=== PATIENT | male | born 1965 | race Caucasian/White ===

== ENCOUNTER 2017-03-18 22:25 | Emergency (ER) | payer MEDICARE, MEDICAID ==
[2017-03-18] MEDS ORDERED: Morphine 2 MG/ML Syringe IVPUSH ONE (22:31)
[2017-03-18 22:33] VITALS: BP 155/79
--- NOTE | 2017-03-18 22:41 | EDM.PDOC ---
ED HPI GENERAL MEDICAL PROBLEM - General Chief Complaint: Chest Pain Stated Complaint: CHEST PAIN Time Seen by Provider: 03/18/17 22:25 Source of Information: Reports: Patient History Limitations: Reports: No Limitations - History of Present Illness INITIAL COMMENTS - FREE TEXT/NARRATIVE: According to patient he was making supper at 6 pm today and started to have chest pain with radiation to left arm. Pt claims that he took one nitro and pain improved and soon it came back in few minutes he took the second one and pain did not improve much. So he ate his supper and went to rest and the chest pain reoccurred and he took his third nitro 0.4mg and pain persisted and hence came into ER. No nausea or vomiting. No incontinence of urine or stool. No wheezing, shortness of breath. no sweating. No cough. No belching burping or abdominal pain.Pain does not get worse with deep breathing Pt rates pain at 5/10 now. Pt claims he had chest pain in September of 2015 , had Stress test, but he has no followup with [facility]. the only medication her takes for heart disease is S/l Nitro. Onset: Today Onset Date: 03/18/17 Onset Time: 18:00 Duration: Intermittent Location: Reports: Chest Quality: Reports: Ache Severity: Moderate Improves with: Reports: None Worsens with: Reports: None Associated Symptoms: Reports: Chest Pain. Denies: Confusion, Cough, Diaphoresis , Fever/Chills, Loss of Appetite, Nausea/Vomiting, Shortness of Breath, Syncope , Weakness Treatments PACKAGER: Reports: Nitroglycerin Chest Pain Score (Numeric/FACES): 8 - Related Data Allergies Allergy/AdvReac Type Severity Reaction Status Date / Time aspirin Allergy Bleeding Verified 03/18/17 22:44 Home Meds: Home Meds Omeprazole [Omeprazole] 40 mg PO ACBREAKFAST 09/26/15 [History] metFORMIN [Glucophage] 500 mg PO BID 09/26/15 [History] FLUoxetine [PROzac] 20 mg PO DAILY 07/31/16 [History] Ibuprofen 600 mg PO TID PRN 12/08/16 [History] Nitroglycerin [Nitrostat] 0.4 mg SL ASDIRECTED 03/18/17 [History] Past Medical History HEENT History: Reports: Impaired Vision Cardiovascular History: Reports: [place] Respiratory History: Reports: None Gastrointestinal History: Reports: GERD Musculoskeletal History: Reports: Arthritis Psychiatric History: Reports: Depression Endocrine/Metabolic History: Reports: Diabetes, Type II Oncologic (Cancer) History: Reports: None - Infectious Disease History Infectious Disease History: Reports: Chicken Pox - Past Surgical History Head Surgeries/Procedures: Reports: None Cardiovascular Surgical History: Reports: None Other Respiratory Surgeries/Procedures: lying in supine: difficulty breathing GI Surgical History: Reports: Colonoscopy Social & Family History - Family History Family Medical History: Noncontributory - Tobacco Use Smoking Status *Q: Former Smoker Years of Tobacco use: 20 Packs/Tins Daily: 0 Used Tobacco, but Quit: Yes Month Tobacco Last Used: 4 years ago Second Hand Smoke Exposure: Yes - Caffeine Use Caffeine Use: Reports: Soda - Alcohol Use Days Per Week of Alcohol Use: 0 - Recreational Drug Use Recreational Drug Use: No ED ROS GENERAL - Review of Systems Review Of Systems: See Below Constitutional: Denies: Fever, Chills HEENT: Denies: Throat Pain, Throat Swelling Respiratory: Denies: Cough, Sputum Cardiovascular: Reports: Chest Pain. Denies: Lightheadedness GI/Abdominal: Denies: Abdominal Pain, Nausea, Vomiting : Denies: Dysuria, Flank Pain Musculoskeletal: Denies: Neck Pain, Shoulder Pain, Joint Pain, Joint Swelling Skin: Denies: Pruritis, Rash Neurological: Denies: Confusion, Dizziness, Weakness Psychiatric: Reports: Anxiety. Denies: Agitation ED EXAM, GENERAL - Physical Exam Exam: See Below Exam Limited By: No Limitations General Appearance: Alert, WD/WN, No Apparent Distress Eye Exam: Bilateral Eye: EOMI, PERRL Ears: Normal External Exam, Normal Canal, Hearing Grossly Normal, Normal TMs Ear Exam: Bilateral Ear: Auricle Normal, Canal Normal, TM normal Nose: Normal Inspection, Normal Mucosa, No Blood Throat/Mouth: Normal Inspection, Normal Lips, Normal Teeth, Normal Gums, Normal Oropharynx, Normal Voice, No Airway Compromise Head: Atraumatic, Normocephalic Neck: Normal Inspection, Supple, Non-Tender, Full Range of Motion Respiratory/Chest: No Respiratory Distress, Lungs Clear, Normal Breath Sounds, No Accessory Muscle Use, Chest Non-Tender Cardiovascular: Normal Peripheral Pulses, Regular Rate, Rhythm, No Edema, No Gallop, No JVD, No Murmur, No Rub Peripheral Pulses: 2+: Radial (L), Radial (R) GI/Abdominal: Normal Bowel Sounds, Soft, Non-Tender, No Organomegaly, No Distention, No Abnormal Bruit, No Mass Back Exam: Normal Inspection, Full Range of Motion, NT Extremities: Normal Inspection, Normal Range of Motion, Non-Tender, Normal Capillary Refill, No Pedal Edema Neurological: Alert, Oriented, CN II-XII Intact, Normal Cognition, Normal Gait, Normal Reflexes, No Motor/Sensory Deficits EKG INTERPRETATION EKG Date: 03/18/17 Rhythm: NSR Rate (beats/min): 78 P-wave: present QRS: normal ST-T: normal QT: normal EKG Interpretation Comments: NSR with LVH Course - Vital Signs Text/Narrative:: Pt has had chest pain since 6 Pm today. His EKG is in normal sinus rhythm, also his chest xray is normal. His CBC and CMP appear normal. Troponin is negative after 5 hrs of chest pain. Pt did receive 4 mg of morphine IV and he still rates his pain at 4/10 and in his chest. He has no other asso symptoms. At this point , I did re evaluate patient. I did apply pressure of his costochondral joints and patient claims it hurts and that is where the pain is. Pt also claims that he fell 1 wk ago and since then his chest has been hurting. Apparently patient has developed costochondritis from fall. Advised intermittent heat to the chest wall and alternate tylenol with motrin for pain.Also he claims his anxiety has got worse since he has not been taking his fluoxitine for past 1 wk, and hence he panicked with his chest hurting. his fluoxitine has been refilled at [facility]. I have advised patient to pick it up tomorrow. Also advised to followup in [facility] next week for recheck. Last Recorded V/S: Last Vital Signs Temp 97.6 F 03/18/17 22:30 Pulse 86 03/18/17 22:30 Resp 20 03/18/17 22:30 BP 155/79 H 03/18/17 22:30 Pulse Ox 100 03/18/17 23:05 - Orders/Labs/Meds Orders: Active Orders 24 hr Category Date Time Status Cardiac Monitoring [RC] .As Directed Care 03/18/17 22:32 Active EKG Documentation Completion [RC] ASDIRECTED Care 03/18/17 22:31 Active Chest 1V Frontal [CR] Stat Exams 03/18/17 22:34 Taken GLYCOSYLATED HEMOGLOBIN,HGBA1C [CHEM] Stat Lab 03/18/17 23:07 Ordered EKG 12 Lead [EK] Routine Ther 03/18/17 22:30 Ordered Labs: Laboratory Tests 03/18/17 03/18/17 03/18/17 Range/Units 22:40 22:40 22:40 WBC 10.8 D (4.0-11.0) K/uL RBC 4.62 (4.50-6.50) M/uL Hgb 13.5 (13.0-18.0) g/dL Hct 38.5 L (40.0-54.0) % MCV 83 (76-96) fL MCH 29.2 (27.0-32.0) pg MCHC 35.1 H (31.0-35.0) g/dL RDW 13.1 (11.0-16.0) % Plt Count 176 (150-400) K/uL MPV 11.1 H (6.0-10.0) fL Neut % (Auto) 55.6 (45.0-70.0) % Lymph % (Auto) 34.1 (20.0-40.0) % [place] % (Auto) 5.8 (3.0-10.0) % Eos % (Auto) 3.9 (1.0-5.0) % Baso % (Auto) 0.6 H (0.0-0.5) % Neut # (Auto) 6.02 (2.00-7.50) K/uL Lymph # (Auto) 3.69 (1.50-4.00) K/uL [place] # (Auto) 0.63 (0.20-0.80) K/uL Eos # (Auto) 0.42 H (0.04-0.40) K/uL Baso # (Auto) 0.06 (0.02-0.10) K/uL PT 9.4 (9.0-11.5) sec INR 0.9 L (1.0-3.5) APTT 23.0 L (27.0-35.0) SECONDS Sodium 138 (136-145) mmol/L Potassium 4.0 (3.5-5.1) mmol/L Chloride 101 (98-107) mmol/L Carbon Dioxide 24.5 (21.0-32.0) mmol/L Anion Gap 16.5 H (5.0-15.0) mmol/L BUN 21 (8-26) mg/dL Creatinine 1.32 H (0.70-1.30) mg/dL Est Cr Clr Drug Dosing TNP Estimated GFR (MDRD) 57 L (>60) MLS/MIN BUN/Creatinine Ratio 15.9 (6-25) Glucose 226 H (74-100) mg/dL Calcium 9.2 (8.5-10.1) mg/dL Total Bilirubin 0.4 (0.0-1.0) mg/dL AST 19 (15-37) U/L ALT 38 (12-78) U/L Alkaline Phosphatase 53 (46-116) U/L Troponin I < 0.015 (0.000-0.060) ng/mL Total Protein 7.2 (6.4-8.2) g/dL Albumin 3.6 (3.4-5.0) g/dL Globulin 3.6 (2.2-4.2) g/dL Albumin/Globulin Ratio 1.0 (0.8-2.0) Meds: Medications Discontinued Medications Generic Name Dose Route Start Last Admin Trade Name Shawnq PRN Reason Stop Dose Admin Morphine Sulfate 4 mg 03/18/17 22:31 03/18/17 22:37 Morphine IVPUSH 03/18/17 22:32 4 mg ONETIME ONE Administration Departure - Departure Time of Disposition: 11:30 Disposition: Home, Self-Care 01 Condition: good Clinical Impression: Costochondritis - Discharge Information Instructions: Chest Wall Pain, [id number] Referrals: PCP,None [Primary Care Provider] - Forms: ED Department Discharge - Problem List & Annotations (1) Costochondritis SNOMED Code(s): 12903876 Code(s): M94.0 - CHONDROCOSTAL JUNCTION SYNDROME [TIETZE] Status: Acute Current Visit: Yes - Problem List Review Problem List Initiated/Reviewed/Updated: Yes - My Orders Last 24 Hours: My Active Orders 03/18/17 22:30 EKG 12 Lead [EK] Routine 03/18/17 22:31 EKG Documentation Completion [RC] ASDIRECTED 03/18/17 22:32 Cardiac Monitoring [RC] .As Directed 03/18/17 22:34 Chest 1V Frontal [CR] Stat 03/18/17 23:07 GLYCOSYLATED HEMOGLOBIN,HGBA1C [CHEM] Stat - Assessment/Plan Last 24 Hours: My Active Orders 03/18/17 22:30 EKG 12 Lead [EK] Routine 03/18/17 22:31 EKG Documentation Completion [RC] ASDIRECTED 03/18/17 22:32 Cardiac Monitoring [RC] .As Directed 03/18/17 22:34 Chest 1V Frontal [CR] Stat 03/18/17 23:07 GLYCOSYLATED HEMOGLOBIN,HGBA1C [CHEM] Stat Assessment:: Chest wall pain Plan: Pt has had chest pain since 6 Pm today. His EKG is in normal sinus rhythm, also his chest xray is normal. His CBC and CMP appear normal. Troponin is negative after 5 hrs of chest pain. Pt did receive 4 mg of morphine IV and he still rates his pain at 4/10 and in his chest. He has no other asso symptoms. At this point , I did re evaluate patient. I did apply pressure of his costochondral joints and patient claims it hurts and that is where the pain is. Pt also claims that he fell 1 wk ago and since then his chest has been hurting. Apparently patient has developed costochondritis from fall. Advised intermittent heat to the chest wall and alternate tylenol with motrin for pain.Also he claims his anxiety has got worse since he has not been taking his fluoxitine for past 1 wk, and hence he panicked with his chest hurting. his fluoxitine has been refilled at [facility]. I have advised patient to pick it up tomorrow. Also advised to followup in clinic next week for recheck.Return if symptoms worsen to emergency room.
--- NOTE | 2017-03-19 08:44 | CR ---
DATE OF SERVICE: 03/18/17 CLINICAL DATA: chest pain AP CHEST: Comparison is made to a prior exam dated 07/23/15. The patient has taken a poor inspiration and is in an apical lordotic position. The heart size is normal. The lungs are clear. The exam is otherwise negative. IMPRESSION: No evidence of acute intrathoracic disease. [id number] [facility]
== END 2017-03-18 23:30 | disposition home or self-care (01) ==
LOC: LB.ED 22:25
DX: M94.0 Chondrocostal junction syndrome [Tietze] (principal); I25.2 Old myocardial infarction; K21.9 Gastro-esophageal reflux disease without esophagitis; M19.90 Unspecified osteoarthritis, unspecified site; F32.9 Major depressive disorder, single episode, unspecified; E11.9 Type 2 diabetes mellitus without complications; Z88.8 Allergy status to other drugs, medicaments and biological substances; Z79.84 Long term (current) use of oral hypoglycemic drugs; Z79.899 Other long term (current) drug therapy; Z87.891 Personal history of nicotine dependence
CPT/HCPCS: 36415; 71010; 80053; 83036; 84484; 85025; 85610; 85730; 93005; 96374; 99285; J2270; 99284

== ENCOUNTER 2018-12-13 08:58 | Emergency (ER) | payer MEDICARE, MEDICAID ==
--- NOTE | 2018-12-13 12:05 | EDM.PDOC ---
ED HPI GENERAL MEDICAL PROBLEM - General Stated Complaint: SYNCOPE EPISODES Time Seen by Provider: 12/13/18 11:40 Source of Information: Reports: Patient History Limitations: Reports: No Limitations - History of Present Illness INITIAL COMMENTS - FREE TEXT/NARRATIVE: Pt presented to emergency room by private vehicle. According to patient, he claims that he got up in the morning and had his breakfast and was taking his medication. He had all the medication in his left hand. After that he does not remember anything, then his brother came and woke him up and told him he was passed out. When he was woken up, he was still sitting in the chair. Does not know how long he had passed out. No weakness in the extremities. No tingling or numbness in the extremities. able to walk with out any discomfort.No chest pain, no palpitations. No lightheaded feeling now. Since he heard that he had passed out he has been feeling very anxious. Also c/ o burning feeling in his lungs. His SPO2 is 100% on room air. Has no cough, shortness of breath or wheezing. Patient's blood sugar is 321 mg in the emergency room. Onset: Today Onset Date: 12/13/18 Onset Time: 08:00 Duration: Improving Severity: Mild Improves with: Reports: None Worsens with: Reports: None Associated Symptoms: Denies: Confusion, Chest Pain, Cough, Diaphoresis, Fever/ Chills, Nausea/Vomiting, Rash, Seizure, Shortness of Breath, Syncope, Weakness - Related Data Allergies Allergy/AdvReac Type Severity Reaction Status Date / Time aspirin Allergy Bleeding Verified 03/18/17 22:44 Home Meds: Home Meds Omeprazole 40 mg PO ACBREAKFAST 09/26/15 [History] metFORMIN [Glucophage] 500 mg PO BID 09/26/15 [History] FLUoxetine [PROzac] 20 mg PO DAILY 07/31/16 [History] Ibuprofen 600 mg PO TID PRN 12/08/16 [History] Nitroglycerin [Nitrostat] 0.4 mg SL ASDIRECTED 03/18/17 [History] Past Medical History HEENT History: Reports: Impaired Vision Cardiovascular History: Reports: [place] Respiratory History: Reports: None Gastrointestinal History: Reports: GERD Musculoskeletal History: Reports: Arthritis Psychiatric History: Reports: Depression Endocrine/Metabolic History: Reports: Diabetes, Type II Oncologic (Cancer) History: Reports: None - Infectious Disease History Infectious Disease History: Reports: Chicken Pox - Past Surgical History Head Surgeries/Procedures: Reports: None Cardiovascular Surgical History: Reports: None Other Respiratory Surgeries/Procedures: lying in supine: difficulty breathing GI Surgical History: Reports: Colonoscopy Social & Family History - Family History Family Medical History: Noncontributory - Caffeine Use Caffeine Use: Reports: Soda ED ROS GENERAL - Review of Systems Review Of Systems: See Below Constitutional: Denies: Fever, Chills, Night Sweats, Diaphoresis HEENT: Denies: Rhinitis, Throat Pain, Throat Swelling Respiratory: Denies: Shortness of Breath, Wheezing, Cough, Sputum Cardiovascular: Reports: Syncope. Denies: Chest Pain, Claudication, Edema, Lightheadedness, Palpitations GI/Abdominal: Denies: Abdominal Pain, Nausea, Vomiting : Denies: Dysuria, Flank Pain Musculoskeletal: Denies: Joint Pain, Joint Swelling Skin: Denies: Pruritis, Rash, Erythema Neurological: Reports: Syncope. Denies: Confusion, Dizziness, Headache, Numbness, Paresthesia, Tingling, Tremors, Trouble Speaking, Difficulty Walking, Weakness, Change in Speech, Gait Disturbance ED EXAM, GENERAL - Physical Exam Exam: See Below Exam Limited By: No Limitations General Appearance: Alert, WD/WN, No Apparent Distress Eye Exam: Bilateral Eye: EOMI, PERRL Ears: Normal External Exam, Normal Canal, Hearing Grossly Normal, Normal TMs Ear Exam: Bilateral Ear: Auricle Normal, Canal Normal, TM normal Nose: Normal Inspection, Normal Mucosa, No Blood Throat/Mouth: Normal Inspection, Normal Lips, Normal Teeth, Normal Gums, Normal Oropharynx, Normal Voice, No Airway Compromise Head: Atraumatic, Normocephalic Neck: Normal Inspection, Supple, Non-Tender, Full Range of Motion Respiratory/Chest: No Respiratory Distress, Lungs Clear, Normal Breath Sounds, No Accessory Muscle Use, Chest Non-Tender Cardiovascular: Normal Peripheral Pulses, Regular Rate, Rhythm, No Edema, No Gallop, No JVD, No Murmur, No Rub Peripheral Pulses: 2+: Carotid (L), Carotid (R), Radial (L), Radial (R), Dorsalis Pedis (L), Dorsalis Pedis (R) GI/Abdominal: Normal Bowel Sounds, Soft, Non-Tender, No Organomegaly, No Distention, No Abnormal Bruit, No Mass Extremities: Normal Inspection, Normal Range of Motion, Non-Tender, Normal Capillary Refill, No Pedal Edema Neurological: Alert, Oriented, CN II-XII Intact, Normal Cognition, Normal Gait, Normal Reflexes, No Motor/Sensory Deficits Skin Exam: Warm, Intact EKG INTERPRETATION Rhythm: NSR [place]: Normal P-Wave: Present QRS: Normal ST-T: Normal QT: Normal Course - Vital Signs Text/Narrative:: Basically pt's description is , he was having his medication in left hand, and had passed out on his chair, this was told to him by his brother. Patient felt anxious and came to emergency room. Patient has decreased mental function. There are no neurological deficits noted. Does not appear like seizures or stroke. He is anxious at this point. Vitals have been stable. Will work him up for cardiac injury and presyncope considering his diabetes. Also his diabetes is not well controlled , his random blood sugar is 321 and he only take metformin 500mg twice daily, this could be hyperglycemic episode too. Pt's EKG is in Sinus rhythm. CBC is normal. CMP is stable. His troponin is negative. Pt has been feeling fine. Only abnormal finding is that he has, elevated blood sugar of 321. I have increased his metformin to 1000mg twice daily. Continue to monitor blood sugars. followup with primary care provider in 7-10 days. Return to emergency room if syncopal episodes reoccur. - Orders/Labs/Meds Orders: Active Orders 24 hr Category Date Time Status EKG Documentation Completion [RC] ASDIRECTED Care 12/13/18 11:58 Active Chest 1V Frontal [CR] Stat Exams 12/13/18 11:59 Taken Labs: Laboratory Tests 12/13/18 12/13/18 12/13/18 Range/Units 10:53 12:15 12:15 WBC 8.9 (4.0-11.0) K/uL RBC 4.94 (4.50-6.50) M/uL Hgb 14.2 (13.0-18.0) g/dL Hct 41.3 (40.0-54.0) % MCV 84 (76-96) fL MCH 28.7 (27.0-32.0) pg MCHC 34.4 (31.0-35.0) g/dL RDW 12.6 (11.0-16.0) % Plt Count 181 (150-400) K/uL MPV 10.9 H (6.0-10.0) fL Neut % (Auto) 67.3 (45.0-70.0) % Lymph % (Auto) 23.0 (20.0-40.0) % [place] % (Auto) 5.2 (3.0-10.0) % Eos % (Auto) 3.9 (1.0-5.0) % Baso % (Auto) 0.6 H (0.0-0.5) % Neut # (Auto) 5.98 (2.00-7.50) K/uL Lymph # (Auto) 2.04 (1.50-4.00) K/uL [place] # (Auto) 0.46 (0.20-0.80) K/uL Eos # (Auto) 0.35 (0.04-0.40) K/uL Baso # (Auto) 0.05 (0.02-0.10) K/uL Sodium 137 (136-145) mmol/L Potassium 4.6 (3.5-5.1) mmol/L Chloride 99 (98-107) mmol/L Carbon Dioxide 27.2 (21.0-32.0) mmol/L Anion Gap 15.4 H (5.0-15.0) mmol/L BUN 17 (8-26) mg/dL Creatinine 1.23 (0.70-1.30) mg/dL Est Cr Clr Drug Dosing TNP Estimated GFR (MDRD) > 60 (>60) MLS/MIN BUN/Creatinine Ratio 13.8 (6-25) Glucose 304 H (74-100) mg/dL POC Glucose 321 H (74-110) mg/dL Calcium 9.1 (8.5-10.1) mg/dL Total Bilirubin 0.4 (0.0-1.0) mg/dL AST 17 (15-37) U/L ALT 35 (12-78) U/L Alkaline Phosphatase 64 (46-116) U/L Troponin I < 0.017 (0.000-0.060) ng/mL Total Protein 8.2 (6.4-8.2) g/dL Albumin 3.9 (3.4-5.0) g/dL Globulin 4.3 H (2.2-4.2) g/dL Albumin/Globulin Ratio 0.9 (0.8-2.0) Departure - Departure Time of Disposition: 13:15 Disposition: Home, Self-Care 01 Condition: Good Clinical Impression: Pre-syncope - Discharge Information *PRESCRIPTION DRUG MONITORING PROGRAM REVIEWED*: Not Applicable *COPY OF PRESCRIPTION DRUG MONITORING REPORT IN PATIENT GEETA: Not Applicable Instructions: Syncope Referrals: PCP,None [Primary Care Provider] - Additional Instructions: Increase Metformin to 1,000mg po twice a day with food. Follow up with primary provider in 7-10 days. - Problem List & Annotations (1) Pre-syncope SNOMED Code(s): 578770100 Code(s): R55 - SYNCOPE AND COLLAPSE Status: Acute Current Visit: Yes - Problem List Review Problem List Initiated/Reviewed/Updated: Yes - My Orders Last 24 Hours: My Active Orders 12/13/18 11:58 EKG Documentation Completion [RC] ASDIRECTED 12/13/18 11:59 Chest 1V Frontal [CR] Stat - Assessment/Plan Last 24 Hours: My Active Orders 12/13/18 11:58 EKG Documentation Completion [RC] ASDIRECTED 12/13/18 11:59 Chest 1V Frontal [CR] Stat Assessment:: Presyncope Plan: Basically pt's description is , he was having his medication in left hand, and had passed out on his chair, this was told to him by his brother. Patient felt anxious and came to emergency room. Patient has decreased mental function. There are no neurological deficits noted. Does not appear like seizures or stroke. He is anxious at this point. Vitals have been stable. Will work him up for cardiac injury and presyncope considering his diabetes. Also his diabetes is not well controlled , his random blood sugar is 321 and he only take metformin 500mg twice daily, this could be hyperglycemic episode too. Pt's EKG is in Sinus rhythm. CBC is normal. CMP is stable. His troponin is negative. Pt has been feeling fine. Only abnormal finding is that he has, elevated blood sugar of 321. I have increased his metformin to 1000mg twice daily. Continue to monitor blood sugars. followup with primary care provider in 7-10 days. Return to emergency room if syncopal episodes reoccur.
[2018-12-13 15:58] VITALS: BP 130/88
--- NOTE | 2018-12-15 10:26 | CR ---
DATE OF SERVICE: 12/13/18 CLINICAL DATA: presyncope AP CHEST: Comparison is made to a prior exam dated 03/18/17. The patient has taken a poor inspiration. The heart size is normal. There are mild atelectatic changes in the right lung base. The lungs are otherwise clear. No pneumothorax. No pleural effusions. [id number] [facility]
== END 2018-12-13 13:12 | disposition home or self-care (01) ==
LOC: LB.ED 08:58
DX: R55 Syncope and collapse (principal); E11.9 Type 2 diabetes mellitus without complications; Z79.84 Long term (current) use of oral hypoglycemic drugs; Z88.6 Allergy status to analgesic agent
CPT/HCPCS: 36415; 71045; 80053; 82962; 84484; 85025; 93005; 99284; 99284-25

== ENCOUNTER 2019-05-19 19:42 | Emergency (ER) | payer MEDICARE, MEDICAID ==
[2019-05-20 00:13] VITALS: BP 115/82; PULSE 105
--- NOTE | 2019-05-20 02:11 | ER ---
REASON FOR EMERGENCY ROOM VISIT: Depression and grieving. HISTORY: This 54-year-old man is said to have Down syndrome. He came to the emergency room accompanied by his older sister with severe sadness and grieving. Apparently, his father this past February and he was suffering from multiple medical problems. His mother in February 3 years ago. The patient had an extreme dependence on his parents and in fact on his siblings, and according to the sister and the patient, he has had a difficult time coping with the loss of his father combined with the loss of his mother some 3 years ago. He states that his feelings of sadness and melancholy tend to wax and wane, but today it has been particularly bad. His sister states that he has not handled the loss and the grieving very well since February. He has not been to see anyone about this regarding any counseling, although he does take the Prozac and has been on this for several years. The patient has been eating and drinking all right and the sister states that he has actually been sleeping reasonably well. He has been crying a lot and grieving quite exuberantly off and on since February. He adamantly denies any history of self-inflicted harm. He has no prior history of suicidal ideation. He adamantly denies he would ever try to harm himself. SOCIAL HISTORY: He lives alone, but his older sister lives next door. He denies the use of alcohol or any drugs. He is a nonsmoker. He has been disabled all of his life due to his Down syndrome. PAST MEDICAL HISTORY: Significant for: 1. Diabetes type 2. 2. History of angina pectoris. 3. History of depression. 4. History of syncopal episodes. 5. History of GERD. MEDICATIONS: Medications reviewed. See EMR. They include omeprazole, nitroglycerin p.r.n., ibuprofen, Prozac, and insulin. ALLERGIES: TO ASPIRIN. REVIEW OF SYSTEMS: Pertinent positives and negatives as listed in the HPI. MENTAL STATUS EXAMINATION: The patient is oriented x3. I spoke with him for a long time regarding his loss and allowed him time to express his grief. Later on, his younger brother showed up and we had a long talk. He was allowed to visit with his siblings for a couple of hours while in the emergency room, and in time he settled down and became much less melancholic and we had a discussion regarding the cause of his depression, namely that this was a situational depression, and I pointed out the difference between this kind of depression and primary or endogenous depression. I explained to them that I do not feel any medical therapy for the way he feels is indicated at this time when it would make much more sense for him to get plugged into some counseling to help him with his grieving and to have him follow up with his primary care provider. The patient and his siblings both wholeheartedly agreed with this plan. All questions were answered. IMPRESSION: Situational depression. DELL/LA NENA /[id number]
== END 2019-05-19 22:25 | disposition home or self-care (01) ==
LOC: LB.ED 19:42
DX: F43.21 Adjustment disorder with depressed mood (principal); K21.9 Gastro-esophageal reflux disease without esophagitis; E11.9 Type 2 diabetes mellitus without complications; Z79.4 Long term (current) use of insulin; Z79.899 Other long term (current) drug therapy; Z88.6 Allergy status to analgesic agent
CPT/HCPCS: 82962; 99282; 99284

== ENCOUNTER → 2019-09-23 | Outpatient (CLI) | payer MEDICARE, MEDICAID ==
[2019-09-23 15:55] LABS: HEMOGLOBIN A1C 10.6 % (< 5.7)
== END ==
LOC: LB.CLINIC 15:19
PROVIDERS: ATTEND Nurse Practitioner Family
DX: E11.9 Type 2 diabetes mellitus without complications (principal); Z79.4 Long term (current) use of insulin
CPT/HCPCS: 36415; 82043; 83036

== ENCOUNTER → 2019-09-25 | Outpatient (CLI) | payer MEDICARE, MEDICAID ==
--- NOTE | 2019-09-25 17:28 | CR ---
Date of Service: 09/25/19 Clinical Data: Low back pain LUMBAR SPINE: There is diffuse osteopenia. No acute fracture or dislocation. There are disk margin spurs throughout the lower thoracic and lumbar spine with mild disk space narrowing at multiple levels. There is facet joint hypertrophy of the mid and lower lumbar spine. There are mild degenerative changes involving the SI joints. No other significant findings. [id number] [facility]
== END ==
LOC: LB.CLINIC 14:03
PROVIDERS: ATTEND Nurse Practitioner Family
DX: M54.5 Low back pain (principal); M48.04 Spinal stenosis, thoracic region; M48.061 Spinal stenosis, lumbar region without neurogenic claudication; M47.816 Spondylosis without myelopathy or radiculopathy, lumbar region; M53.3 Sacrococcygeal disorders, not elsewhere classified
CPT/HCPCS: 72100

== ENCOUNTER 2019-10-30 11:43 | Emergency (ER) | payer MEDICARE, MEDICAID ==
[2019-10-30 12:28] VITALS: BP 139/82; PULSE 108
[2019-10-30 12:54] LABS: HEMOGLOBIN A1C 11.6 % (< 5.7)
--- NOTE | 2019-10-30 13:29 | EDM.PDOC ---
ED HPI GENERAL MEDICAL PROBLEM - General Chief Complaint: Diabetic Complaint Stated Complaint: DIABETES Time Seen by Provider: 10/30/19 12:00 Source of Information: Reports: Patient History Limitations: Reports: No Limitations - History of Present Illness INITIAL COMMENTS - FREE TEXT/NARRATIVE: This is a 54yo M here for a recent fall. He feels that his sugars are not under control and that he has not been monitoring them as he has run out of strips. He denies any other issues and denies any trauma or injury. His Nephew noted that he fell over and was tired looking. He notes that he feels well at this time. Onset: Sudden Duration: Resolved Prior to Arrival Location: Reports: Generalized - Related Data Allergies Allergy/AdvReac Type Severity Reaction Status Date / Time aspirin Allergy Bleeding Verified 10/30/19 12:13 Penicillins AdvReac Cannot Verified 10/30/19 12:13 Remember Home Meds: Home Meds Omeprazole 40 mg PO ACBREAKFAST 09/26/15 [History] FLUoxetine [PROzac] 20 mg PO BID 07/31/16 [History] Ibuprofen 600 mg PO TID PRN 12/08/16 [History] Nitroglycerin [Nitrostat] 0.4 mg SL ASDIRECTED PRN 03/18/17 [History] Insulin Detemir [Levemir Flextouch] 25 unit SQ BEDTIME 05/19/19 [History] Insulin Regular, Human [NovoLIN R] 17 unit SUBCUT ACBREAKFAST 05/19/19 [History] atorvaSTATin [Lipitor] 10 mg PO BEDTIME 10/30/19 [History] Past Medical History HEENT History: Reports: Impaired Vision Cardiovascular History: Reports: [place] Respiratory History: Reports: None Gastrointestinal History: Reports: GERD Musculoskeletal History: Reports: Arthritis Psychiatric History: Reports: Depression Endocrine/Metabolic History: Reports: Diabetes, Type II Oncologic (Cancer) History: Reports: None - Infectious Disease History Infectious Disease History: Reports: Chicken Pox - Past Surgical History Head Surgeries/Procedures: Reports: None Cardiovascular Surgical History: Reports: None Other Respiratory Surgeries/Procedures: lying in supine: difficulty breathing GI Surgical History: Reports: Colonoscopy Social & Family History - Family History Family Medical History: Noncontributory - Tobacco Use Smoking Status *Q: Former Smoker Second Hand Smoke Exposure: No - Caffeine Use Caffeine Use: Reports: Soda ED ROS GENERAL - Review of Systems Review Of Systems: Comprehensive ROS is negative, except as noted in HPI. ED EXAM GENERAL NO PERIP PULSE - Physical Exam Exam: See Below Exam Limited By: No Limitations General Appearance: Alert, WD/WN, No Apparent Distress Eye Exam: Bilateral Eye: EOMI, PERRL Ears: Normal External Exam Nose: Normal Inspection Throat/Mouth: Normal Inspection Head: Atraumatic, Normocephalic Neck: Normal Inspection Respiratory/Chest: No Respiratory Distress, Lungs Clear, Normal Breath Sounds Cardiovascular: Normal Peripheral Pulses, Regular Rate, Rhythm GI/Abdominal: Normal Bowel Sounds Extremities: Normal Inspection Course - Vital Signs Last Recorded V/S: Last Vital Signs Temp 36.8 C 10/30/19 11:45 Pulse 108 H 10/30/19 11:45 Resp 16 10/30/19 11:45 BP 139/82 10/30/19 11:45 Pulse Ox 94 L 10/30/19 11:45 - Orders/Labs/Meds Labs: Laboratory Tests 10/30/19 10/30/19 10/30/19 Range/Units 12:16 12:16 12:16 WBC 11.2 H D (4.0-11.0) K/uL RBC 5.58 (4.50-6.50) M/uL Hgb 16.2 (13.0-18.0) g/dL Hct 45.1 (40.0-54.0) % MCV 81 (76-96) fL MCH 29.0 (27.0-32.0) pg MCHC 35.9 H (31.0-35.0) g/dL RDW 12.7 (11.0-16.0) % Plt Count 200 (150-400) K/uL MPV 11.2 H (6.0-10.0) fL Neut % (Auto) 77.3 H (45.0-70.0) % Lymph % (Auto) 14.1 L (20.0-40.0) % Lagrange % (Auto) 6.0 (3.0-10.0) % Eos % (Auto) 2.2 (1.0-5.0) % Baso % (Auto) 0.4 (0.0-0.5) % Neut # (Auto) 8.68 H (2.00-7.50) K/uL Lymph # (Auto) 1.58 (1.50-4.00) K/uL [place] # (Auto) 0.67 (0.20-0.80) K/uL Eos # (Auto) 0.25 (0.04-0.40) K/uL Baso # (Auto) 0.05 (0.02-0.10) K/uL Sodium 130 L (136-145) mmol/L Potassium 4.9 (3.5-5.1) mmol/L Chloride 95 L (98-107) mmol/L Carbon Dioxide 23.8 (21.0-32.0) mmol/L Anion Gap 16.1 H (5.0-15.0) mmol/L BUN 17 D (8-26) mg/dL Creatinine 1.58 H D (0.70-1.30) mg/dL Est Cr Clr Drug Dosing 50.55 mL/min Estimated GFR (MDRD) 46 L (>60) MLS/MIN BUN/Creatinine Ratio 10.8 (6-25) Glucose 418 H* D (74-100) mg/dL Hemoglobin A1c 11.6 H (< 5.7) % Calcium 9.2 (8.5-10.1) mg/dL Total Bilirubin 0.5 (0.0-1.0) mg/dL AST 17 (15-37) U/L ALT 26 (12-78) U/L Alkaline Phosphatase 81 (46-116) U/L Troponin I < 0.017 (0.000-0.060) ng/mL Total Protein 8.4 H (6.4-8.2) g/dL Albumin 3.8 (3.4-5.0) g/dL Globulin 4.6 H (2.2-4.2) g/dL Albumin/Globulin Ratio 0.8 (0.8-2.0) TSH, Ultra Sensitive 2.601 (0.358-3.740) uIU/mL Departure - Departure Time of Disposition: 13:00 Disposition: Home, Self-Care 01 Condition: Good Clinical Impression: Hyperglycemia, Hyponatremia - Discharge Information Instructions: Hyperglycemia, [id number] Referrals: PCP,None [Primary Care Provider] - Forms: ED Department Discharge Care Plan Goals: Continue to monitor your blood sugars at home. If you run out of supplies to check it, contact the clinic right away and they can send over a refill so you can continue checking it. Sepsis Event Note - Evaluation Sepsis Screening Result: No Definite Risk - Focused Exam Vital Signs: Vital Signs Temp Pulse Resp BP Pulse Ox 10/30/19 11:45 36.8 C 108 H 16 139/82 94 L Date Exam was Performed: 10/30/19 Time Exam was Performed: 13:22 - Problem List & Annotations (1) Hyperglycemia SNOMED Code(s): 19053704 Code(s): R73.9 - HYPERGLYCEMIA, UNSPECIFIED Status: Acute Priority: High Current Visit: Yes (2) Hyponatremia SNOMED Code(s): 11976642 Code(s): E87.1 - HYPO-OSMOLALITY AND HYPONATREMIA Status: Acute Priority : High Current Visit: Yes - Problem List Review Problem List Initiated/Reviewed/Updated: Yes - Assessment/Plan Plan: Counseled on glucose management and monitoring. Patient agrees with close f/u and rtc in 1-2 wks for recheck of HgA1c, glucose and Na+ level. Patient meds renewed and test strips renewed. Counseled on return to ER as needed if symptoms return. Discussed hyponatremia and use of powerade and f/u labs.
== END 2019-10-30 13:41 | disposition home or self-care (01) ==
LOC: LB.ED 11:43
DX: E87.1 Hypo-osmolality and hyponatremia (principal); E11.65 Type 2 diabetes mellitus with hyperglycemia; I25.2 Old myocardial infarction; Z88.6 Allergy status to analgesic agent; Z88.0 Allergy status to penicillin; Z79.899 Other long term (current) drug therapy; Z79.4 Long term (current) use of insulin; Z87.891 Personal history of nicotine dependence
CPT/HCPCS: 36415; 80053; 83036; 84443; 84484; 85025; 99283

== ENCOUNTER 2020-08-11 19:38 | Emergency (ER) | payer MEDICARE, MEDICAID ==
[2020-08-11] MEDS ORDERED: Morphine 2 MG/ML SYRINGE IVPUSH ONE (19:45)
[2020-08-11] MEDS ORDERED: GI Cocktail Oral Solution 30 ML PO ONE ×2 (19:46→21:13)
[2020-08-11] MEDS ORDERED: Sodium Chloride 0.9% 1,000 ML IV ONE (20:20)
[2020-08-11] MEDS ORDERED: Insulin Regular, Human 100 Units/ML 3 ML Vial IV ONE (20:28)
[2020-08-11 21:05] LABS: HEMOGLOBIN A1C 13.5 % (< 5.7)
[2020-08-11] MEDS ORDERED: LORazepam 2 MG/ML SDV IVPUSH ONE ×2 (21:13→21:18)
[2020-08-11] MEDS ORDERED: Pantoprazole 40 MG Vial IVPUSH ONE (21:14)
--- NOTE | 2020-08-11 22:50 | ER ---
HISTORY OF PRESENT ILLNESS: A 55-year-old male who comes in with complaints of his chest being on fire pointing to the lower sternal area. He states this started about 4 days ago. In the last 2 days, it has gotten worse. He did take 1 nitroglycerin, but it did not help at all. The patient states his pain is severe when he arrived at our ER, rating it at 9/10 or 10/10. He has not been coughing up any blood or vomiting. The patient denies any problems with fever, shortness of breath, wheezing, or diarrhea. PAST MEDICAL HISTORY: Includes diabetes, insulin dependent, history of GERD with a stomach ulcer, dyslipidemia, and anxiety. OBJECTIVE: GENERAL APPEARANCE: The patient is awake and alert. No respiratory distress. He is actually standing in the trauma room when I first entered taking off his shirt. He was able to get up onto the bed without any difficulty. SKIN: Warm and dry. VITAL SIGNS: Reviewed. He is afebrile. Blood pressure in the 130s over 90s, pulse in the 80s. LUNGS: Clear. CARDIAC: Heart sounds distinct without murmurs. ABDOMEN: Reveals mild tenderness in the epigastric area, midline and to the left. There is no splenomegaly. HEENT: Oral mucous membranes slightly dry. Tonsils are not enlarged or injected. Pharynx not inflamed. INITIAL TREATMENT MEASURES: An EKG shows normal sinus rhythm. An IV was started. At this point in time, the patient was given a GI cocktail of 30 mL which did help his pain to some degree. I gave him morphine 2 mg and his pain was totally gone for almost an hour. During this time, labs were obtained. CBC is unremarkable. Metabolic panel shows a blood glucose of 420, sodium 133, potassium is normal. Kidney function is maintained. Troponin is normal or negative. An A1c is 13.5. At this point, we gave the patient 1 L of normal saline in bolus form and 10 units of regular insulin. Followup blood sugar about an hour later, dropped his blood sugar to 284. The patient did have some recurrence of burning in the lower sternal area. He was given a second dose of GI cocktail and I gave him Protonix 40 mg IV. The patient was also given 0.5 mg of Ativan. Once again, reduced his pain to almost nothing within about 15 minutes and he states that he feels fine. At this point, the patient will be discharged home. His brother is here to drive him home. I do want the patient to stay on the PPI. I will write a script for Prilosec 40 mg a day to be started tomorrow, and he is to resume using all of his other medications including insulin. The patient tells me that he is overdue to see his doctor which is Dr. Godwin, and he was told he would not get any more medication as far as Protonix until he is seen in the clinic. He states he has been too busy taking care of one of his brothers recently to go in for a doctor's appointment himself. Chest x-ray was also taken and is unremarkable. DIAGNOSES: 1. Hyperglycemia. 2. Gastritis/gastroesophageal reflux disease symptoms. CRS/MODL /[id number]
[2020-08-12 03:00] VITALS: BP 152/78; PULSE 84
--- NOTE | 2020-08-12 08:49 | CR ---
Date of Service: 08/11/20 Clinical Data: chest pain AP CHEST: Comparison is made to a prior exam dated 12/13/18. The patient has taken a poor inspiration. The heart size is normal. The lungs appear clear. No pneumothorax. No pleural effusions. No evidence of acute intrathoracic disease. [id number] [facility]
== END 2020-08-11 22:20 | disposition home or self-care (01) ==
LOC: LB.ED 19:38
DX: E11.65 Type 2 diabetes mellitus with hyperglycemia (principal); R07.9 Chest pain, unspecified
CPT/HCPCS: 36415; 71045; 80053; 82962; 83036; 84484; 85025; 85610; 93005; 96374; 96375; 99283; 99285-25; A9270-GY; C9113; J2060; J2270; J7030

== ENCOUNTER 2021-08-29 11:11 | Emergency (ER) | payer MEDICARE, MEDICAID ==
[2021-08-29] MEDS ORDERED: Albuterol/Ipratropium 3.0-0.5 MG/3 ML Neb Soln ONE (15:24)
[2021-08-29] MEDS ORDERED: Albuterol/Ipratropium 3.0-0.5 MG/3 ML Neb Soln NEB ONE (15:30)
[2021-08-29] MEDS ORDERED: Albuterol/Ipratropium 3.0-0.5 MG/3 ML Neb Soln NEB SCH (15:30)
--- NOTE | 2021-08-29 17:44 | EDM.PDOC ---
ED HPI GENERAL MEDICAL PROBLEM - General Chief Complaint: Respiratory Problem Stated Complaint: COUGH / SOB Time Seen by Provider: 08/29/21 14:35 Source of Information: Reports: Patient History Limitations: Reports: No Limitations - History of Present Illness INITIAL COMMENTS - FREE TEXT/NARRATIVE: 56-year-old male presents to the ED complaining of shortness of breath and isai rns for Covid 19 infection. Patient has been sick for 3-1/2 weeks. He describes the illness as a gradual onset with shortness of breath, fatigue, increased sleepiness. Patient says he is unable to lay down because of his shortness of breath. Positive for: Diarrhea, chest wall pain, rheumatoid arthritis joint pain. Negative for: Nausea vomiting, changes to urine color smell frequency volume, oral intake. - Related Data Allergies Allergy/AdvReac Type Severity Reaction Status Date / Time aspirin Allergy Bleeding Verified 08/29/21 12:44 Penicillins AdvReac Cannot Verified 08/29/21 12:44 Remember Home Meds: Home Meds Omeprazole 40 mg PO ACBREAKFAST 09/26/15 [History] FLUoxetine [PROzac] 20 mg PO BID 07/31/16 [History] Ibuprofen 600 mg PO TID PRN 12/08/16 [History] Nitroglycerin [Nitrostat] 0.4 mg SL ASDIRECTED PRN 03/18/17 [History] Insulin Detemir [Levemir Flextouch] 25 unit SQ BEDTIME 05/19/19 [History] Insulin Regular, Human [NovoLIN R] 17 unit SUBCUT ACBREAKFAST 05/19/19 [History] atorvaSTATin [Lipitor] 10 mg PO BEDTIME 10/30/19 [History] buPROPion [buPROPion XL] 2 tab PO DAILY 08/29/21 [History] Past Medical History HEENT History: Reports: Impaired Vision Cardiovascular History: Reports: [place] Respiratory History: Reports: None Gastrointestinal History: Reports: GERD Musculoskeletal History: Reports: Arthritis Psychiatric History: Reports: Depression Endocrine/Metabolic History: Reports: Diabetes, Type II Oncologic (Cancer) History: Reports: None - Infectious Disease History Infectious Disease History: Reports: Chicken Pox - Past Surgical History Head Surgeries/Procedures: Reports: None Cardiovascular Surgical History: Reports: None Other Respiratory Surgeries/Procedures: lying in supine: difficulty breathing GI Surgical History: Reports: Colonoscopy Social & Family History - Family History Family Medical History: No Pertinent Family History - Tobacco Use Tobacco Use Status *Q: Current Every Day Tobacco User Years of Tobacco use: 3 Packs/Tins Daily: 1 Used Tobacco, but Quit: No Second Hand Smoke Exposure: No - Caffeine Use Caffeine Use: Reports: Coffee ED ROS GENERAL - Review of Systems Review Of Systems: See Below Constitutional: Reports: Fever, Chills, Fatigue, Night Sweats HEENT: Reports: Glasses. Denies: Ear Discharge, Eye Discharge, Vision Change Respiratory: Reports: Shortness of Breath, Pleuritic Chest Pain, Cough Cardiovascular: Reports: Orthopnea, Other (Chest wall pain) Endocrine: Reports: High Glucose, Polyuria GI/Abdominal: Reports: Diarrhea. Denies: Black Stool, Bloody Stool, Constipation, Hematochezia, Melena, Nausea, Vomiting : Reports: No Symptoms Musculoskeletal: Reports: Joint Pain (Rheumatoid arthritis) Skin: Reports: No Symptoms Neurological: Reports: Weakness Psychiatric: Reports: No Symptoms Hematologic/Lymphatic: Reports: No Symptoms Immunologic: Reports: No Symptoms ED EXAM, GENERAL - Physical Exam Exam: See Below Free Text/Narrative:: 56-year-old male presented to the parking lot complaining of Covid type sensed symptoms patient remained in parking lot while a Covid test was conducted. Covid test was positive. Patient was found sitting in car in the parking lot where physical exam was done. Patient was alert and oriented 3/3 GCS 4 5 6, patient was speaking in full sentences with frequent coughing, no obvious trauma. Patient in minor distress due to cough/shortness of breath Exam Limited By: Other (Exam done in parking lot) General Appearance: Alert, WD/WN, Mild Distress Eye Exam: Bilateral Eye: EOMI, PERRL Ears: Normal External Exam, Normal Canal, Hearing Grossly Normal, Normal TMs Ear Exam: Bilateral Ear: Auricle Normal, Canal Normal, TM normal Nose: Normal Inspection, Normal Mucosa, No Blood Throat/Mouth: Normal Oropharynx, Normal Voice, No Airway Compromise Head: Atraumatic, Normocephalic Neck: Normal Inspection. No: Lymphadenopathy (R), Lymphadenopathy (L) Respiratory/Chest: Lungs Clear, Normal Breath Sounds, No Accessory Muscle Use, Respiratory Distress (Minor due to coughing). No: Chest Non-Tender, Decreased Breath Sounds, Crackles, Rales, Rhonchi, Wheezing, Stridor, Accessory Muscle Use, Retractions, Splinting, Prolonged Expiration Cardiovascular: Normal Peripheral Pulses, Regular Rate, Rhythm, No Gallop GI/Abdominal: Soft, Non-Tender Back Exam: No: CVA Tenderness (R), CVA Tenderness (L), Paraspinal Tenderness, Vertebral Tenderness Neurological: Alert, Oriented, Normal Cognition, Normal Gait (Patient's baseline) Psychiatric: Normal Affect, Normal Mood Skin Exam: Warm, Intact, Other (Damp) Lymphatic: No Adenopathy Course - Vital Signs Last Recorded V/S: Last Vital Signs Temp 98.4 F 08/29/21 12:38 Pulse Resp 18 08/29/21 12:38 BP Pulse Ox - Orders/Labs/Meds Orders: Active Orders 24 hr Category Date Time Status RT Aerosol Therapy [RC] ASDIRECTED Care 08/29/21 15:26 Ordered RT Aerosol Therapy [RC] ASDIRECTED Care 08/29/21 15:26 Ordered Chest 1V Frontal [CR] Stat Exams 08/29/21 14:56 Taken Albuterol/Ipratropium [DuoNeb 3.0-0.5 MG/3 ML] Med 08/29/21 15:30 Ordered 3 ml NEB BID Medication Orders Albuterol/Ipratropium (Albuterol/Ipratropium 3.0-0.5 Mg/3 Ml Neb Soln) 3 ml NEB BID DANY Last Admin: 08/29/21 15:27 Dose: 3 ml Documented by: KRANTHI Labs: Laboratory Tests 08/29/21 Range/Units 12:45 SARS-CoV-2 RNA (SUZIE) Positive H (NEGATIVE) Meds: Medications Generic Name Dose Route Start Last Admin Trade Name Freq PRN Reason Stop Dose Admin Albuterol/Ipratropium 3 ml 08/29/21 15:30 08/29/21 15:27 Albuterol/Ipratropium 3.0-0.5 Mg/3 Ml Neb Soln NEB 3 ml BID DANY Administration Discontinued Medications Generic Name Dose Route Start Last Admin Trade Name Freq PRN Reason Stop Dose Admin Albuterol/Ipratropium Confirm 08/29/21 15:24 08/29/21 15:28 Albuterol/Ipratropium 3.0-0.5 Mg/3 Ml Neb Soln Administered 08/29/21 15:25 Not Given Dose 3 ml .ROUTE .STK-MED ONE Albuterol/Ipratropium 3 ml 08/29/21 15:30 Albuterol/Ipratropium 3.0-0.5 Mg/3 Ml Neb Soln NEB 08/29/21 15:31 ONETIME ONE - Radiology Interpretation Free Text/Narrative:: Diffuse infiltrates throughout lobes, no lobar pneumonia noted. Departure - Departure Time of Disposition: 17:30 Disposition: Home, Self-Care 01 Condition: Good Clinical Impression: COVID-19 - Discharge Information *PRESCRIPTION DRUG MONITORING PROGRAM REVIEWED*: No *COPY OF PRESCRIPTION DRUG MONITORING REPORT IN PATIENT GEETA: No Instructions: Symptoms of COVID-19 - CDC (12/27/2020) Referrals: PCP,None [Primary Care Provider] - Forms: ED Department Discharge Additional Instructions: Scheduled for outpatient Regeneron IV infusions. Sepsis Event Note (ED) - Focused Exam Vital Signs: Vital Signs Temp Resp 08/29/21 12:38 98.4 F 18 - My Orders Last 24 Hours: My Active Orders 08/29/21 14:56 Chest 1V Frontal [CR] Stat 08/29/21 15:26 RT Aerosol Therapy [RC] ASDIRECTED RT Aerosol Therapy [RC] ASDIRECTED 08/29/21 15:30 Albuterol/Ipratropium [DuoNeb 3.0-0.5 MG/3 ML] 3 ml NEB BID - Assessment/Plan Last 24 Hours: My Active Orders 08/29/21 14:56 Chest 1V Frontal [CR] Stat 08/29/21 15:26 RT Aerosol Therapy [RC] ASDIRECTED RT Aerosol Therapy [RC] ASDIRECTED 08/29/21 15:30 Albuterol/Ipratropium [DuoNeb 3.0-0.5 MG/3 ML] 3 ml NEB BID Assessment:: Patient signs and cyst symptoms, presentation, labs consistent with COVID-19 infection. Patient qualifies for monoclonal antibody infusion based on BMI, diabetes, heart history. Patient is not hypoxic, lethargic, unable to speak in full sentences, or altered mental status that would require inpatient treatment. Therefore patient is qualified for outpatient treatment which will be done today with Regeneron infusion. Patient was given a handout regarding risks and benefits of monoclonal antibody infusion, shared decision making was instituted regarding this decision, all questions were answered to the patient's family and patient's satisfaction decision was made to go ahead with the monoclonal antibody infusion. Patient received infusion was discharged in stable condition. Patient was given instructions to return to the ED if he has a allergic reaction to the infusion, increased shortness of breath, altered mental status, lethargy, anorexia. Plan: COVID-19 test, ABC, history, exam, patient scheduled for infusion therapy outpatient, patient given DuoNeb for cough, patient discharged in stable condition from ED move directly to Covid room for infusion therapy.
--- NOTE | 2021-08-29 18:02 | CR ---
DATE OF SERVICE: 08/29/21 CLINICAL DATA: COVID AP CHEST: Comparison is made to a prior exam dated 09/17/20. The patient has taken a poor inspiration. There is breathing motion artifact. The heart size is stable. The lungs are clear. No pneumothorax. No pleural effusions. No evidence of acute intrathoracic disease. [id number] [facility]
== END 2021-08-29 15:30 | disposition home or self-care (01) ==
LOC: LB.ED 11:11
DX: U07.1 COVID-19 (principal); Z88.0 Allergy status to penicillin; Z88.8 Allergy status to other drugs, medicaments and biological substances; Z79.899 Other long term (current) drug therapy; Z72.0 Tobacco use
CPT/HCPCS: 71045; 99285-25; J7620-GY; U0002

== ENCOUNTER 2023-03-04 21:15 | Emergency (ER) | payer MEDICARE, MEDICAID ==
[2023-03-04] MEDS ORDERED: cefTRIAXone 1 GM Vial IM ONE (22:04)
[2023-03-04] MEDS ORDERED: cefTRIAXone 1 GM Vial ONE (22:16)
[2023-03-04] MEDS ORDERED: Lidocaine 1% PF 2 ML SDV INJECT ONE (22:23)
[2023-03-04 22:43] LABS: HEMOGLOBIN A1C 11.5 % (< 5.7)
[2023-03-04] MEDS ORDERED: Glucagon,Human Recombinant 1 MG Vial IM PRN (22:44)
[2023-03-04] MEDS ORDERED: Insulin Regular, Human 100 Units/ML 3 ML Vial SUBCUT ONE (22:44)
[2023-03-04] MEDS ORDERED: 50% Dextrose in Water 50 ML Syringe IVPUSH PRN (22:44)
[2023-03-04 23:30] VITALS: BP 139/72; PULSE 88
== END 2023-03-04 23:20 | disposition home or self-care (01) ==
LOC: SUPCPDRO 21:15 → LB.ED 21:15
DX: E10.621 Type 1 diabetes mellitus with foot ulcer (principal); L97.521 Non-pressure chronic ulcer of other part of left foot limited to breakdown of skin; L97.511 Non-pressure chronic ulcer of other part of right foot limited to breakdown of skin; E10.65 Type 1 diabetes mellitus with hyperglycemia; K21.9 Gastro-esophageal reflux disease without esophagitis; Z88.8 Allergy status to other drugs, medicaments and biological substances; Z88.0 Allergy status to penicillin; Z79.899 Other long term (current) drug therapy; Z79.4 Long term (current) use of insulin
CPT/HCPCS: 36415; 80048; 82947; 83036; 85027; 96372; 99283; 99284; J0696

== ENCOUNTER 2023-04-04 14:03 | Emergency (ER) | payer MEDICARE, MEDICAID ==
[2023-04-04] MEDS ORDERED: Sodium Chloride 0.9% 10 ML Syringe FLUSH PRN (14:25)
[2023-04-04 14:48] LABS: HEMATOCRIT 39.8 % (40.0-54.0); HEMOGLOBIN 13.8 g/dL (13.0-18.0); MEAN CORPUSCULAR HEMOGLOBIN 28.9 pg (27.0-32.0); MEAN CORPUSCULAR HGB CONC 34.7 g/dL (31.0-35.0); MEAN PLATELET VOLUME 10.4 fL (6.0-10.0); RED BLOOD CELL COUNT 4.77 M/uL (4.50-6.50); RED CELL DISTRIBUTION WIDTH 13.1 % (11.0-16.0)
[2023-04-04 15:15] LABS: MAGNESIUM 1.7 mg/dL (1.8-2.4); PHOSPHORUS 2.8 mg/dL (2.5-4.9); TROPONIN I HIGH SENSITIVITY 4.4 pg/ml (<=60.4)
[2023-04-04 15:22] LABS: ANION GAP 11.2 mmol/L (5.0-15.0); BUN/CREATININE RATIO 8.2 (6-25); CALCIUM 8.6 mg/dL (8.5-10.1); CREATININE 1.34 mg/dL (0.70-1.30); EST CRCL DRUG DOSING (CG) 53.54 mL/min; POTASSIUM,K 4.2 mmol/L (3.5-5.1)
[2023-04-04 16:21] VITALS: BP 126/69; PULSE 78
== END 2023-04-04 16:30 | disposition home or self-care (01) ==
LOC: LB.ED 14:03
DX: R07.89 Other chest pain (principal); R42 Dizziness and giddiness; K21.9 Gastro-esophageal reflux disease without esophagitis; E11.9 Type 2 diabetes mellitus without complications; Z88.8 Allergy status to other drugs, medicaments and biological substances; Z88.0 Allergy status to penicillin; Z79.899 Other long term (current) drug therapy; Z79.4 Long term (current) use of insulin
CPT/HCPCS: 36415; 71045; 80048; 82947; 83735; 83880; 84100; 84484; 85027; 85379; 93005; 99285